=== PATIENT | female | born 1945 | race African-American/Black ===

== ENCOUNTER 2017-03-09 12:37 | Inpatient (IN) ==
[2017-03-09 13:28] LABS: MANUAL DIFF NEEDED? NO
[2017-03-09 13:30] LABS: BASO% 0.9 % (0.0-0.8); EOS# 0.07 X1000 (0.0-0.7); EOS% 1.2 % (0.0-10.0); HEMATOCRIT 40.2 % (37.0-47.0); HEMOGLOBIN 13.7 g/dL (12.0-16.0); LYMPH# 1.26 X1000 (1.2-3.4); LYMPH% 21.9 % (20.5-51.1); MCH 30.1 PG (27-31); MCHC 34.1 g/dL (33-37); MCV 88.4 FL (81-99); MONO# 0.53 X1000 (0.11-0.59); MONO% 9.2 % (1.7-9.3); MPV 11.2 FL (7.4-10.4); NEUT% 66.8 % (42.2-75.2); PLT 230 X1000 (130-400); RBC 4.55 XMIL (4.2-5.4)
[2017-03-09 13:39] LABS: INR 1.07; PROTIME 11.3 Seconds (9.2-11.7); PTT 30.6 Seconds (22.0-36.0)
[2017-03-09 13:46] LABS: ALBUMIN 4.1 g/dL (3.5-5.0); CALCIUM 9.3 mg/dL (8.8-10.2); MAGNESIUM 2.1 mg/dL (1.5-2.7); POTASSIUM 3.7 mmol/L (3.5-5.1); TOTAL BILIRUBIN 0.56 mg/dL (0.20-1.00); TOTAL PROTEIN 7.7 g/dL (6.3-8.3)
--- NOTE | 2017-03-09 16:52 | EKG Report ---
Test Performed on : 03/09/2017 1:18:25 PM Test Reason : numbness Blood Pressure : / mmHG Vent. Rate : 068 BPM Atrial Rate : 068 BPM P-R Int : 166 ms QRS Dur : 096 ms QT Int : 400 ms P-R-T Axes : 076 033 054 degrees QTc Int : 425 ms Normal sinus rhythm. Left ventricular hypertrophy with repolarization abnormality Abnormal ECG No previous ECGs available Unconfirmed Result
--- NOTE | 2017-03-09 17:39 | ED EKG INTERP ---
This chart was entered by Lennox Azevedo Scribe, acting as scribe for Alexx Carbajal MD. EKG Interpretation - EKG Time of EKG reading by physician:: 13:18 EKG Read and Signed by:: Alexx Carbajal EKG Interpretation (*Must complete 3 of following elements*): Abnormal Rate: 68 Rhythm: NSR [place]: normal QRS: normal AR Interval: normal ST Wave: non-specific ST changes This chart was documented by the indicated scribe, (Lennox Azevedo Scribe) and accurately reflects the services I performed and decisions made by Solomon tejada Vincent J., MD, as attested by the provider's signature.
[2017-03-09] MEDS ORDERED: LABETALOL IV ONE ×2 (17:46→19:10)
--- NOTE | 2017-03-09 18:46 | Diag Imaging Result Doc PS360 ---
HEAD W/O CONTRAST - 03/09/2017 INDICATION: NUMBNESS TECHNIQUE: A CT dose reduction protocol was used. COMPARISON: None FINDINGS: The ventricles and sulci are normal in size and contour. No intracranial mass or hemorrhage. The skull is intact. The sinuses mastoids and middle ears are clear. IMPRESSION: Negative exam. Electronically signed by Justin Potter 03/09/2017 6:43 PM
[2017-03-09] MEDS ORDERED: NITROGLYCERIN TOP ONE (19:10)
--- NOTE | 2017-03-09 20:10 | Diag Imaging Result Doc PS360 ---
ANGIOGRAM/PULMONARY ARTERIES - 03/09/2017 INDICATION: elevated Ddimer; HTN TECHNIQUE: Axial CT images were obtained after administering intravenous contrast. Coronal MIP images were generated. A CT dose reduction protocol was used. COMPARISON: None FINDINGS: There is no pulmonary embolism. There is mild cardiomegaly. There are sternotomy wires. There has been previous left upper lobectomy. There are some tiny granulomas in the right lung. There is scarring at the apices bilaterally. No suspicious infiltrates. Upper abdominal images are normal. No acute bony lesions. IMPRESSION: No acute disease. Electronically signed by Justin Potter 03/09/2017 8:08 PM
[2017-03-09] MEDS: CARDENE 20 MG/NS 20 MG/200 ML PIGGYBACK IV SCH ×2 (21:04→21:25)
[2017-03-09] MEDS ORDERED: ASPIRIN PO ONE (21:29)
[2017-03-09] MEDS ORDERED: ATIVAN IM ONE (21:29)
--- NOTE | 2017-03-09 22:15 | HISTORY AND PHYSICAL ---
REASON FOR ADMISSION: A two-day history of intermittent right-sided numbness and resistant elevated blood pressure. HISTORY OF PRESENT ILLNESS: Ms. Dafne Almanza is a 71-year-old lady with past medical history of hypertension, coronary artery disease status post CABG who follows up with Dr. Romero, his machine operator helper, but has no primary care physician. Comes in today complaining of intermittent numbness which lasts anywhere from 10-30 minutes since yesterday afternoon. She denies any accompanying focal weakness or motor deficits, no speech problems, visual problems, difficulty swallowing, ataxia, urinary incontinence, loss of consciousness, headaches. She came in primarily because these episodes are more frequent and more prolonged. On arrival to the ER her blood pressure was greater than 220 systolic and greater than 115 diastolic. She received a total of 40 mg of labetalol, 1 inch paste of nitroglycerin and her blood pressure is still 210/110 diastolic. REVIEW OF SYSTEMS: Surprisingly enough, other than the numbness, 14 system review was totally negative per the patient. No cardiorespiratory complaints. No GI or complaints. ALLERGIES: No known allergies. MEDICATIONS: Lisinopril 20 mg daily and atenolol 50 mg b.i.d. FAMILY HISTORY: Notable for heart failure and type 2 diabetes in first-degree relatives. SURGICAL HISTORY: CABG. SOCIAL HISTORY: She lives with her son, does not smoke, drink or use drugs. LABORATORY WORK/IMAGING: EKG showed normal sinus rhythm with occasional PVCs. Left axis deviation. There are Q-waves in the inferior leads and LVH. CT head reveals no acute intracranial process. Other lab work shows negative troponin. White count 5000, hemoglobin and hematocrit of 30 and 40, platelets 230,000 with normal differential. BUN 17, creatinine 1.2, glucose 137, proBNP 941. D-dimer was 1. CTA of the chest was negative for any PE or any gross aortic abnormality. PT PTT is normal. PHYSICAL EXAMINATION: GENERAL: Middle-aged woman who is not in acute distress. She is alert and oriented x3. Normal mood and affect. VITAL SIGNS: Blood pressure is 218/114, heart rate 65, respirations were initially 25 because she was anxious, and now it is 18. Temperature 99.2 degrees, and 95% on room air. HEENT: Head is normocephalic. Eyes STEFANO, EOMI. She has bilateral cataracts. She is anicteric and not pale. Cranial 2-12 are grossly intact. NEUROLOGICAL: Reveals no sensory or motor deficits. Power is 5/5 in both extremities. EARS, NOSE AND THROAT/OROPHARYNX: Shows no oropharyngeal exudates or erythema. No central cyanosis. NECK: Supple. No JVD or carotid bruit. No thyromegaly. CHEST: Clear to auscultation. Good air entry in both lung [place]. First and second heart sounds are heard. There was suggestion systolic murmur was heard. Rhythm is regular. ABDOMEN: Protuberant, soft, nontender. No masses or organomegaly. Bowel sounds hypoactive. RECTAL: Deferred at this time. EXTREMITIES: No edema, clubbing or peripheral cyanosis. Pulses in all distal extremities are intact with good volume and are symmetrical. NEUROLOGIC: See above. SKIN: Intact. No breakdown lesion or erythema. MUSCULOSKELETAL: Grossly normal. ASSESSMENT: 1. Probable transient ischemic attack/stroke-like syndrome. We will do a customary transient ischemic attack workup especially since the patient has documented coronary artery disease. MRI, carotid Doppler study, and echo needs to be provided. We will cautiously bring down blood pressure, no longer no lower than 180, at least for the 1st 12 hours I would like to keep blood pressure between 170-180 systolic. We will continue patient's home medications, add on a calcium channel ana and a diuretic to the current medications she is on. The son denies the mother having any significant problems or snoring which may make sleep apnea less likely. We will consult Dr. Romero who is the patient's only regular physician to swing by us here and see if there is anything on her medication list she has forgotten. The patient says she has been very compliant with her medications. The patient will be started on aspirin and statins in the interim. DVT prophylaxis with Lovenox. 2. Hypertensive urgency. We will continue the aforementioned blood pressure medications i.e. the calcium channel ana and diuretic, AKIKO and atenolol. P.r.n. hydralazine will be given for systolic blood pressures greater than 200. 3. Coronary artery disease. Continue statin, aspirin, beta blockers. We will also screen patient for other risk factors, check lipid panel and an A1c due the fact she has had a family history of diabetes and she has mildly elevated blood sugars. cc: Toya Burgess MD
[2017-03-09 22:19] LABS: HDL 49 mg/dL (45-65); LDL 152 mg/dL; TRIGLYCERIDES 72 mg/dL (35-135); VLDL 14 mg/dL
[2017-03-09 22:20] LABS: HEMOGLOBIN A1C 5.8 % (4.8-6.0)
[2017-03-09] MEDS ORDERED: ZOFRAN IV PRN (22:44)
[2017-03-09] MEDS ORDERED: ALDACTAZIDE 25/25 PO ONE (22:44)
[2017-03-09] MEDS ORDERED: TYLENOL PO PRN (22:44)
[2017-03-09] MEDS ORDERED: NORVASC PO ONE (22:44)
[2017-03-09] MEDS ORDERED: APRESOLINE IV PRN (22:44)
[2017-03-09] MEDS ORDERED: ATIVAN IM PRN (22:44)
[2017-03-09] MEDS: TENORMIN PO SCH (23:36)
[2017-03-09] MEDS: NITROGLYCERIN TOP SCH (23:36)
[2017-03-09] MEDS: PRINIVIL PO SCH (23:36)
[2017-03-09] MEDS: LOVENOX SUBQ SCH (23:36)
[2017-03-10] MEDS: NITROGLYCERIN TOP SCH ×4 (04:50→22:21)
[2017-03-10 05:17] LABS: MANUAL DIFF NEEDED? NO
[2017-03-10 05:20] LABS: BASO% 0.4 % (0.0-0.8); EOS# 0.02 X1000 (0.0-0.7); EOS% 0.2 % (0.0-10.0); HEMATOCRIT 40.5 % (37.0-47.0); HEMOGLOBIN 13.9 g/dL (12.0-16.0); LYMPH# 1.74 X1000 (1.2-3.4); LYMPH% 19.5 % (20.5-51.1); MCH 30.3 PG (27-31); MCHC 34.3 g/dL (33-37); MCV 88.4 FL (81-99); MONO# 1.04 X1000 (0.11-0.59); MONO% 11.6 % (1.7-9.3); NEUT% 68.3 % (42.2-75.2); PLT 239 X1000 (130-400); RBC 4.58 XMIL (4.2-5.4)
[2017-03-10 05:38] LABS: CALCIUM 9.6 mg/dL (8.8-10.2); POTASSIUM 3.6 mmol/L (3.5-5.1)
[2017-03-10] MEDS ORDERED: NORVASC PO SCH (09:00)
[2017-03-10] MEDS: ALDACTAZIDE 25/25 PO SCH (09:19)
[2017-03-10] MEDS: TENORMIN PO SCH ×2 (09:19→20:28)
[2017-03-10] MEDS: ASPIRIN PO SCH (09:19)
[2017-03-10] MEDS: PRINIVIL PO SCH ×2 (09:19→20:28)
[2017-03-10] MEDS ORDERED: APRESOLINE PO ONE (10:15)
[2017-03-10] MEDS: LABETALOL IV PRN ×4 (11:24→20:28)
--- NOTE | 2017-03-10 11:24 | PROGRESS NOTE ---
DATE: 03/10/2017 SUBJECTIVE: Patient has no focal complaints. She is having some issues with numbness in her right hand. OBJECTIVE: Vital Signs: Blood pressure 222/92, heart rate 77, respiratory rate 20, temperature 97.8 degrees, 99% on room air. Cardiovascular: Regular rate and rhythm. Pulmonary: Bilateral breath sounds clear to auscultation. GI: Soft, nontender, nondistended. Bowel sounds were positive. Laboratory Data: White count is normal. Hemoglobin and hematocrit 13 and 40. Platelets 239,000. BMP is normal. Creatinine 1.2. PROBLEM LIST: 1. Transient ischemic attacks versus cerebrovascular accident. She is awaiting MRI today and carotid. Allowing some degree of permissive hypertension but her systolic is 220 so I think we will work on trying to get her blood pressure down a little bit. 2. Hypertensive emergency. She is on multiple medications. Amlodipine 10, atenolol 50 twice a day, lisinopril 20 twice a day, spironolactone/hydrochlorothiazide 25/25 daily, nitroglycerin paste at this point. We will add low-dose hydralazine and follow clinically. 3. Disposition pending her clinical course. Cardiology has been consulted. Awaiting recommendations as far as blood pressure control. cc: Jignesh Jones MD
[2017-03-10] MEDS ORDERED: SODIUM BICARBONATE 8.4% 150 MEQ in D5W 1,000 ML IV SCH (12:00)
--- NOTE | 2017-03-10 12:41 | Diag Imaging Result Doc PS360 ---
EXAM: MRI BRAIN W/O CONTRAST INDICATION: TIA in CAD pt COMPARISON: None. FINDINGS: There is no evidence of acute infarct. The deep white matter signal is unremarkable. There is no discrete intracranial mass, mass effect, or intracranial hemorrhage. The surrounding soft tissues and bony structures are essentially unremarkable. IMPRESSION: No evidence of acute intracranial pathology and essentially unremarkable, otherwise. Electronically signed by Angelito Yadav 03/10/2017 12:39 PM
--- NOTE | 2017-03-10 12:50 | Diag Imaging Result Doc PS360 ---
EXAM: MRA NECK W/CONT INDICATION: TIA, HTN, evaluate carotid artery disease TECHNIQUE: COMPARISON: None. FINDINGS: There is very mild luminal irregularity at the distal left common carotid artery and left carotid bifurcation likely related to mild atherosclerotic disease. This is causing mild focal stenosis at the origin of the left ICA. There is probably less than 10% luminal narrowing. The remainder of the left ICA and left CCA as well as the entire right carotid system are widely patent with no evidence of flow significant stenosis, vascular malformation, or aneurysm. There is mild signal dropout involving the distal right vertebral artery just proximal to the basilar artery. 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 It does remain patent as seen on the source images. IMPRESSION: Mild atherosclerotic irregularity involving the distal left CCA and left carotid bifurcation causing only mild narrowing of the origin of the left ICA. Electronically signed by Angelito Yadav 03/10/2017 12:48 PM
[2017-03-10] MEDS ORDERED: APRESOLINE PO SCH ×3 (13:00→17:00)
--- NOTE | 2017-03-10 13:04 | EKG Report ---
Test Performed on : 03/10/2017 12:33:22 PM Test Reason : TIA, HTN Blood Pressure : / mmHG Vent. Rate : 084 BPM Atrial Rate : 084 BPM P-R Int : 172 ms QRS Dur : 100 ms QT Int : 396 ms P-R-T Axes : 077 035 -34 degrees QTc Int : 467 ms Normal sinus rhythm. Possible Left atrial enlargement Left ventricular hypertrophy Cannot rule out Septal infarct (cited on or before 10-MAR-2017) T wave abnormality, consider inferolateral ischemia Abnormal ECG When compared with ECG of 10-MAR-2017 12:32, (Unconfirmed) No significant change was found Confirmed by Larisa Brady MD ([id number]) on 03/11/2017 1:01:39 PM
[2017-03-10] MEDS: APRESOLINE PO SCH ×2 (16:45→20:29)
[2017-03-10] MEDS: LIPITOR PO SCH (20:29)
[2017-03-10] MEDS: LOVENOX SUBQ SCH (22:21)
[2017-03-11] MEDS: NITROGLYCERIN TOP SCH ×5 (04:48→23:32)
[2017-03-11 06:07] LABS: CALCIUM 9.5 mg/dL (8.8-10.2); POTASSIUM 3.5 mmol/L (3.5-5.1)
--- NOTE | 2017-03-11 06:13 | EKG Report ---
Test Performed on : 03/11/2017 05:43:50 AM Test Reason : uncontrolled HTN/s/pCABG Blood Pressure : / mmHG Vent. Rate : 083 BPM Atrial Rate : 083 BPM P-R Int : 160 ms QRS Dur : 098 ms QT Int : 388 ms P-R-T Axes : 083 029 044 degrees QTc Int : 455 ms Normal sinus rhythm. Voltage criteria for left ventricular hypertrophy T wave abnormality, consider inferolateral ischemia Abnormal ECG When compared with ECG of 10-MAR-2017 12:33, (Unconfirmed) Minimal criteria for Septal infarct are no longer present Confirmed by Larisa Brady MD ([id number]) on 03/11/2017 1:02:58 PM
[2017-03-11] MEDS ORDERED: LEXISCAN ONE (09:11)
--- NOTE | 2017-03-11 09:12 | CONSULTATION ---
DATE OF CONSULTATION: 03/10/2017 REQUESTING PHYSICIAN: Hospitalist Service. REASON FOR CONSULTATION: Possible stroke, severe hypertension, and abnormal EKG. HISTORY OF PRESENT ILLNESS: Ms. Almanza is a 71-year-old black female who presented to the Emergency Room on 03/09/2017 at about 1:00 p.m. or so with complaints of having a funny feeling that she described as a twinge in the palm of the right hand and also in the right foot. This appeared to come and go and suddenly became more intense. It was not painful. She suspected that this could be a stroke and decided to seek medical attention. In the Emergency Room Department they did several blood pressure determinations and her blood pressure got to be as high as 271/124. Her blood pressure eventually came back down to 200/104. The patient had several EKGs that showed diffuse repolarization abnormality with sinus rhythm. No chest pain was reported at any point in time. Today at 2:00 p.m. in the afternoon she was feeling back to her normal self. She has had already an MRI of the neck and of the brain which shows no evidence of any major stroke nor evidence of any major obstruction of the circulation to the brain. PAST MEDICAL HISTORY: Her past history is positive for hypertension for many years. She has a history of severe coronary artery disease. She underwent a triple coronary bypass procedure back in 2005. She received a mammary artery graft to the LAD, vein graft to D1, and vein graft to the right coronary artery. The patient has had hyperlipidemia. PAST SURGICAL HISTORY: Besides the coronary artery bypass, she has had a left upper lobectomy for tuberculosis many years ago in the 70s. SOCIAL HISTORY: She lives with her son. She is retired. She is a not a smoker. FAMILY HISTORY: Negative. ALLERGIES: Negative. She has no allergies. MEDICATIONS: Home medications at the time of this visit includes: Lisinopril 20 mg twice a day and atenolol 50 mg twice a day. REVIEW OF SYSTEMS: She has not had any major change in her overall status but she is aware of having high blood pressure. No recent cardiovascular change or pulmonary change. No gastrointestinal symptoms of any significance. No musculoskeletal symptoms. No skin disorder. No hearing or visual problems. No recent neurological symptoms until the ones that brought her to the Emergency Room. No psychiatric illness. No diabetes or hypothyroidism. She says that she does not have any primary physician. PHYSICAL EXAMINATION: VITAL SIGNS: Right now her blood pressure is 200/104, temperature 98.3, pulse 70, and respirations 12. GENERAL: She is awake, alert, oriented, and in no distress. HEENT: Unremarkable. CHEST: Clear to auscultation and percussion. CARDIOVASCULAR: Heart sounds are regular and rhythmic. No gallop or murmur. ABDOMEN: Soft and nontender. No masses. No hepatomegaly. EXTREMITIES: The extremities show +1 edema. NEUROLOGICAL: She moves all extremities and follows commands. LABORATORY DATA: Blood work shows a sodium of 140, potassium 3.6, BUN 16, and creatinine 1.2. ProBNP is 941. Troponin levels have been checked twice and they are negative. Her white count is normal. Hemoglobin is normal. Pulmonary arteriogram was done at the time of presentation that showed no acute disease. IMPRESSION: 1. Patient presenting with severe hypertension due to hypertensive urgency. 2. Symptoms consistent with a transient ischemic attack involving the left side of the brain, parietal area. Because there is no motor deficit it is more a paresthesia. This has subsided. 3. History of coronary artery bypass surgery status post bypass in 2005. 4. Hyperlipidemia. 5. Remote history of tuberculosis status post lobectomy. RECOMMENDATIONS: At this point in time we will review the MRI of the neck and brain. We will order a CT scan of the renal arteries to exclude renal hypertension. I will request a Lexiscan myocardial perfusion study. We will review the echocardiogram. Further advice will be forthcoming. cc: Brandon Segundo MD
[2017-03-11] MEDS: ASPIRIN PO SCH (09:15)
[2017-03-11] MEDS: TENORMIN PO SCH ×2 (09:15→20:27)
[2017-03-11] MEDS: PRINIVIL PO SCH ×2 (09:15→20:27)
[2017-03-11] MEDS: APRESOLINE PO SCH ×3 (09:15→20:27)
[2017-03-11] MEDS: ALDACTAZIDE 25/25 PO SCH (09:15)
[2017-03-11] MEDS: NORVASC PO SCH ×2 (09:15→20:27)
[2017-03-11] MEDS: LABETALOL IV PRN ×3 (09:15→18:40)
--- NOTE | 2017-03-11 09:58 | PROGRESS NOTE ---
DATE: 03/11/2017 CHIEF COMPLAINT: Uncontrolled hypertension and paresthesia of the right hand and right leg. SUBJECTIVE: Ms. Almanza says that she has not experienced any more paresthesias. Blood pressure appears to be better controlled although it is still running somewhat high. She denies having any chest pain. OBJECTIVE: Vital signs: Blood pressure is 187/70, temperature 98.4, pulse 85, and respirations 20. General: She is awake, alert, oriented, and follows commands. HEENT: Unremarkable. Chest: Clear to auscultation and percussion. Cardiovascular: Heart sounds are regular and rhythmic. She does have a systolic murmur, 2/6 over the aortic area. Abdomen: Her abdomen is soft and nontender. No masses. No hepatomegaly. Extremities: The extremities show good pulses. No peripheral edema. Neurological: She follows commands and moves all extremities. No obvious deficits. LABORATORY DATA: Blood work reveals a sodium of 140, potassium 3.5, BUN 17, and creatinine 1.4. IMPRESSION: 1. Patient who presented with uncontrolled hypertension. 2. Patient has a history of severe coronary artery disease with previous bypass surgery. 3. Suspect transient ischemia attack versus stroke involving the left parietal area of the brain causing paresthesias. 4. Mild renal dysfunction. Evaluate for renal artery stenosis. RECOMMENDATIONS: Today we are going to do a Lexiscan myocardial perfusion study. We will also try to obtain a CT angiogram of the renal arteries. Further advice will depend on the results of these studies. In the meantime we might consider adjusting her medications further to try to optimize her systemic blood pressures. cc: Brandon Segundo MD
[2017-03-11] MEDS ORDERED: NS 500 ML ONE (10:44)
--- NOTE | 2017-03-11 12:33 | Diag Imaging Result Doc PS360 ---
EXAM: ANGIOGRAM/RENAL ARTERIES HISTORY: severe HTN, evaluate for renal artery stenosis TECHNIQUE: MIP images obtained COMPARISON: None. FINDINGS: There are scattered hypodense hepatic and renal lesions believed to be cysts. The largest arises from the upper pole of the right kidney measuring 5.4 cm. Normal spleen and adrenal glands. Prominent pancreatic duct. No pancreatic mass identified. The gallbladder is partly contracted. No calcified stones. No bowel obstruction. Normal takeoff of the celiac artery and the superior mesenteric artery. No stenosis to either of these arteries. There is atherosclerotic plaque at the takeoff of each renal artery. Stenosis of between 50-70%. Calcified plaque is more prominent on the right. No aneurysmal dilatation to the abdominal aorta. Normal inferior mesenteric artery. Prominent atherosclerosis in the distal abdominal aorta and iliac arteries. 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 4.Prominent atherosclerosis in the distal abdominal aorta and iliac arteries. No aneurysmal dilatation. Electronically signed by Derek Copeland 03/11/2017 12:31 PM
--- NOTE | 2017-03-11 12:59 | ECHO REPORT ---
ORDER DATE: 03/10/2017 MEASUREMENTS: Left ventricular end-diastolic diameter 5.8. End systolic diameter 2.5. Posterior wall thickness 1.5. Septal thickness 1.5. Left atrium 4.6. Aortic root 2.7 SUMMARY: 1. Fair quality study. 2. Mild aortic valve sclerosis demonstrated with adequate aortic valve opening evident. There is trace aortic regurgitation. Mild mitral calcification is demonstrated with mild thickening of mitral valve leaflets. Mitral valve opening is adequate. There is very mild mitral regurgitation. Tricuspid and pulmonic valves are without structural abnormality with mild tricuspid regurgitation and mild pulmonic insufficiency. The estimated systolic PA pressure by Doppler is 30-35 mmHg. The aortic root is normal size. 3. Borderline left ventricular enlargement with moderate concentric left hypertrophy is demonstrated. Estimated left ejection fraction appears to be at least 60%. No regional wall motion abnormalities evident. Doppler suggests grade 1 left ventricular diastolic dysfunction. Left atrium is mildly enlarged. Right atrium and right ventricle are normal size with normal right ventricular systolic function. 4. No pericardial effusion. 5. Appearance of inferior vena cava suggests normal central venous pressure. CONCLUSION: 1. Aortic valve sclerosis without stenosis with trace aortic insufficiency. 2. Very mild mitral regurgitation. 3. Mild tricuspid regurgitation with estimated systolic PA pressure 30-35 mmHg. 4. Borderline left ventricular enlargement with moderate concentric left hypertrophy and estimated left ejection fraction greater than 60%. 5. Grade 1 left ventricular diastolic dysfunction. 6. Mild left atrial enlargement. cc: MD Toya Figueroa MD
--- NOTE | 2017-03-11 13:37 | Diag Imaging Result Document ---
PROCEDURE NAME: MYOCARDIAL PERF SCAN, STR/REST - 03/11/2017 STUDY: Rest/stress Lexiscan myocardial perfusion imaging study. REQUESTING DOCTOR: Dr. Segundo INDICATION: A 71-year-old female patient presenting with uncontrolled hypertension, possible stroke, post bypass surgery. This is a followup on her coronary heart disease. DESCRIPTION: The patient came into the nuclear lab and received a rest injection of technetium-99 sestamibi 12.6 mCi. Multiple tomographic views of the cardiac structures were obtained at rest. Subsequently, the patient underwent infusion of Lexiscan 0.4 mg per protocol. At peak infusion, injected with technetium-99 sestamibi 35.4 mCi. Multiple tomographic views of the cardiac structures were obtained following the completion of the exercise protocol. SUMMARY OF THE ELECTROCARDIOGRAPHIC PORTION OF THE STUDY: Resting ECG shows sinus rhythm, rate 87 beats per minute. Resting blood pressure 215/111. Resting ECG shows left ventricular hypertrophy with diffuse repolarization abnormality. During the protocol, the heart rate increased to 120 beats per minute. The blood pressure dropped to 178/89. The patient reported no chest pain, shortness of breath, or palpitations. The ECG showed no significant changes. Following the completion of infusion, the heart rate and blood pressure returned back to their baseline. IMPRESSION: In summary, the electrocardiographic response of infusion of Lexiscan is inconclusive due to the presence of extensive repolarization abnormalities. SUMMARY OF THE MYOCARDIAL PERFUSION PORTION OF THE STUDY: Poststress tomographic views of the left ventricle showed a moderate to severe mid anterior to apical anterior defect. The rest images showed reversibility of this defect. The polar plots revealed the same. There is evidence of inducible ischemia of significant degree involving the mid to apical anterior wall of the left ventricle. This corresponds to the territory of the LAD. No scar is noted. Gated SPECT shows normal left ventricular systolic function, ejection fraction of 60% with normal ventricular volumes, no wall motion abnormality. The lung/heart ratio is normal. TID is abnormally elevated at 1.42. IMPRESSION: In summary, this study shows: 1. Inconclusive electrocardiographic response to infusion of Lexiscan. 2. Abnormal poststress myocardiac perfusion scan. There is scintigraphic evidence of inducible ischemia of significant degree involving the mid to apical anterior wall of the left ventricle suggesting compromise of the LAD. No scar is noted. 3. Preserved left ventricular systolic function. Ejection fraction estimated at 60% with normal ventricular volumes, no wall motion abnormality. This study represents high risk for ischemic events. cc: Brandon Segundo MD
[2017-03-11] MEDS: SODIUM BICARBONATE 8.4% 150 MEQ in D5W 1,000 ML IV SCH (17:29)
--- NOTE | 2017-03-11 19:37 | Carotid Study ---
DATE: 03/09/2017 PROCEDURE: Carotid duplex imaging. REFERRING PHYSICIAN: Dr. Burgess/Dr. Jones INTERPRETING PHYSICIAN: BING: Marcello INDICATIONS: TIA with right-sided weakness. OBSERVED DATA RIGHT LEFT Brachial Blood Pressure Carotid Pulse Bruits: Carotid/Sub DIAGRAM OF ULTRASOUND IMAGING R L RIGHT INT EXT INT EXT LEFT Alex (cm/s) Alex (cm/s) Subclavian 85/8 Subclavian 143/0 CCA Proximal 63/9 CCA Proximal 86/12 CCA Distal 58/9 CCA Distal 65/9 Bulb 49/7 Bulb 72/13 ICA Proximal 30/7 ICA Proximal 65/9 ICA Mid 51/14 ICA Mid 55/13 ICA Distal 50/14 ICA Distal 46/13 ECA 66/0 ECA 76/3 Vertebral 39/10, antegrade Vertebral 60/14, antegrade ICA/CCA Ratio 0.87 ICA/CCA Ratio 0.76 % Stenosis 0-39% % Stenosis 0-39% FINDINGS: On the right side, there is some intimal thickening of the common carotid artery but overall no significant flow-limiting lesion is noted. On the left, there is a very heterogeneous calcific appearing plaque in the carotid bulb extending into the proximal internal carotid artery. On the downstream side of this, there does appear to be an area that is not calcified. There is possibility of thrombus on top of an ulcerative plaque. This does appear to be a quite stenotic lesion, although does not seem to cause turbulence of flow. There is some swirling of blood distally but no elevation of velocity noted. PHYSICIAN INTERPRETATION: Overall normal exam on the right. On the left, there does appear to be possibility of a soft appearing thrombus on top of a more calcific plaque that could potentially explain the patient's right-sided symptoms. Would recommend correlation clinically. cc: MD Toya Ocampo MD
[2017-03-11] MEDS: LIPITOR PO SCH (20:27)
[2017-03-11] MEDS: LOVENOX SUBQ SCH ×2 (20:28→23:32)
[2017-03-12] MEDS: NITROGLYCERIN TOP SCH ×2 (03:21→08:04)
[2017-03-12] MEDS: NORVASC PO SCH ×2 (08:04→21:02)
[2017-03-12] MEDS: TENORMIN PO SCH ×2 (08:04→21:02)
[2017-03-12] MEDS: ALDACTAZIDE 25/25 PO SCH (08:04)
[2017-03-12] MEDS: APRESOLINE PO SCH ×3 (08:04→21:02)
[2017-03-12] MEDS: ASPIRIN PO SCH (08:04)
[2017-03-12] MEDS: PRINIVIL PO SCH ×2 (08:04→21:02)
[2017-03-12 12:52] LABS: CALCIUM 9.2 mg/dL (8.8-10.2); POTASSIUM 3.4 mmol/L (3.5-5.1)
--- NOTE | 2017-03-12 14:02 | PROGRESS NOTE ---
DATE: 03/12/2017 SUBJECTIVE: Patient has no focal complaints. OBJECTIVE: Vital Signs: Blood pressure has improved drastically. Blood pressure 137/66, heart rate 78, respiratory rate 14, and temperature 98.7 degrees. Cardiovascular: Regular rate and rhythm. Pulmonary: Bilateral breath sounds. Clear to auscultation. Gastrointestinal: Soft, nontender, nondistended. Bowel sounds were positive. Extremities: No clubbing or cyanosis. LABORATORY DATA: Potassium 3.4, creatinine 1.4. PROBLEM LIST: 1. Hypertensive urgency related to renal artery stenosis. Continue blood pressure control. I am going to take her off her hydrochlorothiazide just because of the renal insufficiency issues in anticipation of need of IV contrast. I am going to switch her nitroglycerin paste to Imdur. She is on lisinopril, hydralazine (hydralazine had been increased), atenolol, and Norvasc. 2. Acute kidney injury. She seems to be stable. She is on bicarbonate infusion and Mucomyst. Anticipate catheterization on Tuesday and then possible renal artery adjustment. She may need stenting. Discussed with the local surgical service here, but will likely need that procedure done by [facility] in [place]. DISPOSITION: We will continue to follow until Tuesday's testing and then likely transfer. cc: Jignesh Jones MD
[2017-03-12] MEDS: MUCOMYST 20% PO SCH ×2 (15:50→21:02)
[2017-03-12] MEDS: SODIUM BICARBONATE 8.4% 150 MEQ in D5W 1,000 ML IV SCH (15:54)
[2017-03-12] MEDS: LIPITOR PO SCH (21:02)
[2017-03-12] MEDS: LOVENOX SUBQ SCH (21:02)
[2017-03-13 05:11] LABS: HEMATOCRIT 41.1 % (37.0-47.0); HEMOGLOBIN 13.6 g/dL (12.0-16.0); MCH 30.4 PG (27-31); MCHC 33.1 g/dL (33-37); MCV 91.7 FL (81-99); MPV 10.9 FL (7.4-10.4); RBC 4.48 XMIL (4.2-5.4)
[2017-03-13 05:46] LABS: CALCIUM 8.9 mg/dL (8.8-10.2); POTASSIUM 3.2 mmol/L (3.5-5.1)
[2017-03-13] MEDS: PRINIVIL PO SCH ×2 (08:29→20:25)
[2017-03-13] MEDS: APRESOLINE PO SCH ×3 (08:29→20:24)
[2017-03-13] MEDS: ALDACTONE PO SCH (08:29)
[2017-03-13] MEDS: ASPIRIN PO SCH (08:29)
[2017-03-13] MEDS: NORVASC PO SCH ×2 (08:29→20:25)
[2017-03-13] MEDS: TENORMIN PO SCH ×2 (08:29→20:24)
[2017-03-13] MEDS: MUCOMYST 20% PO SCH ×2 (08:31→20:24)
[2017-03-13] MEDS ORDERED: IMDUR PO SCH (09:00)
[2017-03-13] MEDS ORDERED: KLOR-CON PO ONE (13:16)
[2017-03-13] MEDS ORDERED: IMDUR PO ONE (13:28)
[2017-03-13] MEDS: SODIUM BICARBONATE 8.4% 150 MEQ in D5W 1,000 ML IV SCH (14:35)
--- NOTE | 2017-03-13 15:41 | PROGRESS NOTE ---
DATE: 03/13/2017 SUBJECTIVE: Patient has no focal complaints. OBJECTIVE: Vital signs: Blood pressure 168/72, heart rate 71, respiratory 16, temperature 97.9 degrees, 95% on room air. Cardiovascular: Regular rate and rhythm. Pulmonary: Bilateral breath sounds. Clear to auscultation. GI: Soft, nontender, nondistended. Bowel sounds are positive. Extremities: No clubbing or cyanosis. Lymphatics: No peripheral edema. Neurological: Nonfocal. LABORATORY DATA: White count 7, hemoglobin and hematocrit 13 and 41, platelets 244,000. Potassium 3.2, creatinine 1.5. Free T4 was only 1.12 which is normal. PROBLEM LIST: 1. Hypertensive emergency. She seems to be doing better. We feel this is secondary to renal artery stenosis. Plan is for renal artery stent after her catheterization. Most likely this will transpire at [place]. If she needs PCI she will just get both procedures done there. If she does not get transferred I will consult Dr. Jeter. Apparently he does do renal artery stents at this facility. Blood pressure is still not completely controlled. I am going to increase her Imdur. She is on lisinopril, she is on hydralazine, atenolol and Norvasc. 2. Acute kidney injury. Slight increase in her creatinine. I am going to bump up her bicarb a little bit and continue the Mucomyst. Plan is for cardiac catheterization tomorrow. 3. Abnormal myocardial perfusion imaging. Again plan is for cardiac catheterization tomorrow, she may end up needing PCI depending on diagnostic catheterization results. DISPOSITION: Pending her cardiac catheterization tomorrow. cc: Jignesh Jones MD
[2017-03-13] MEDS: LOVENOX SUBQ SCH (20:24)
[2017-03-13] MEDS: LIPITOR PO SCH (20:25)
[2017-03-14 05:02] LABS: HEMATOCRIT 39.8 % (37.0-47.0); HEMOGLOBIN 13.1 g/dL (12.0-16.0); MCH 30.6 PG (27-31); MCHC 32.9 g/dL (33-37); MPV 10.8 FL (7.4-10.4); RBC 4.28 XMIL (4.2-5.4)
[2017-03-14 05:07] LABS: INR 1.06; PROTIME 11.2 Seconds (9.2-11.7)
[2017-03-14 05:21] LABS: CALCIUM 9.2 mg/dL (8.8-10.2); POTASSIUM 3.6 mmol/L (3.5-5.1)
--- NOTE | 2017-03-14 06:01 | EKG Report ---
Test Performed on : 03/14/2017 05:25:19 AM Test Reason : chest pain, cad Blood Pressure : / mmHG Vent. Rate : 072 BPM Atrial Rate : 072 BPM P-R Int : 162 ms QRS Dur : 094 ms QT Int : 396 ms P-R-T Axes : 075 024 261 degrees QTc Int : 433 ms Normal sinus rhythm. Moderate voltage criteria for LVH, may be normal variant T wave abnormality, consider lateral ischemia Abnormal ECG When compared with ECG of 13-MAR-2017 06:11, (Unconfirmed) Nonspecific T wave abnormality has replaced inverted T waves in Inferior leads Nonspecific T wave abnormality has replaced inverted T waves in Anterior leads Confirmed by Larisa Brady MD ([id number]) on 03/14/2017 10:18:13 AM
--- NOTE | 2017-03-14 06:23 | EKG Report ---
Test Performed on : 03/12/2017 06:20:17 AM Test Reason : chest pain, cad Blood Pressure : / mmHG Vent. Rate : 080 BPM Atrial Rate : 080 BPM P-R Int : 166 ms QRS Dur : 098 ms QT Int : 370 ms P-R-T Axes : 073 036 -79 degrees QTc Int : 426 ms Normal sinus rhythm. Voltage criteria for left ventricular hypertrophy T wave abnormality, consider inferior ischemia T wave abnormality, consider anterolateral ischemia Abnormal ECG When compared with ECG of 11-MAR-2017 05:43, T wave inversion now evident in Anterior leads Confirmed by Larisa Brady MD ([id number]) on 03/14/2017 10:17:12 AM
--- NOTE | 2017-03-14 06:26 | EKG Report ---
Test Performed on : 03/13/2017 06:11:18 AM Test Reason : chest pain, cad Blood Pressure : / mmHG Vent. Rate : 060 BPM Atrial Rate : 060 BPM P-R Int : 168 ms QRS Dur : 100 ms QT Int : 426 ms P-R-T Axes : 053 032 -11 degrees QTc Int : 426 ms Normal sinus rhythm. Voltage criteria for left ventricular hypertrophy T wave abnormality, consider inferior ischemia T wave abnormality, consider anterolateral ischemia Abnormal ECG When compared with ECG of 12-MAR-2017 06:20, (Unconfirmed) No significant change was found Confirmed by Larisa Brady MD ([id number]) on 03/14/2017 10:17:41 AM
[2017-03-14] MEDS: SODIUM BICARBONATE 8.4% 150 MEQ in D5W 1,000 ML IV SCH (07:09)
[2017-03-14] MEDS ORDERED: NITROGLYCERIN ONE (07:28)
[2017-03-14] MEDS ORDERED: HEPARIN 1000 UNITS/NS 2,000 UNIT/1,000 ML IV.SOLN ONE (07:29)
[2017-03-14 08:18] VITALS: BP 160/63
--- NOTE | 2017-03-14 08:26 | PROGRESS NOTE ---
DATE: 03/14/2017 CHIEF COMPLAINT: Numbness of the right hand and severe hypertension. SUBJECTIVE: Ms. Almanza had an uneventful weekend. The patient did not experience any chest pain. Occasional numbness of the right hand. OBJECTIVE: Blood pressure is 153/69, temperature 97.6 ,pulse is about 90, respirations 20. She is awake, alert and oriented, in no distress. HEENT is unremarkable. Chest: Clear to auscultation and percussion. Heart sounds are regular and rhythmic. No gallop or murmur. Her abdomen is nontender, soft. No masses, no hepatomegaly. Extremities showed slightly decreased pulses. No peripheral edema. Neurologic: She moves all 4 extremities, follows commands. DIAGNOSTIC DATA: EKG shows sinus rhythm, left ventricular hypertrophy, nonspecific T wave abnormality consistent with LVH. Blood work today shows sodium 139, potassium 3.6, BUN is 22, creatinine 1.3. White count is 7450, hemoglobin 13.1. IMPRESSION: 1. The patient presented with severe hypertension. She also presented with numbness of the right hand suspicious for a transient ischemic attack/stroke. 2. CT evidence of bilateral renal artery stenosis in the moderate to severe range, 50% to 70%. 3. Severe coronary heart disease with previous coronary bypass surgery an abnormal myocardial perfusion study suggesting occlusion of the LAD system. 4. Mild renal insufficiency. Mild hypokalemia. RECOMMENDATIONS: At this point in time, the patient is advised to pursue left heart catheterization as well as renal arteriography. Benefits, risks and complications were explained. I suggested to her to do it in 2 separate sittings given her renal dysfunction to minimize the amount of dye that might be used. The patient and her 2 children requested that she be transferred to [place] for that specific procedure. We will make arrangements, and they will take care of her from that point onwards. cc: Brandon Segundo MD
[2017-03-14] MEDS ORDERED: IMDUR PO SCH (09:00)
[2017-03-14] MEDS: APRESOLINE PO SCH (09:33)
[2017-03-14] MEDS: TENORMIN PO SCH (09:33)
[2017-03-14] MEDS: PRINIVIL PO SCH (09:33)
[2017-03-14] MEDS: ALDACTONE PO SCH (09:33)
[2017-03-14] MEDS: ASPIRIN PO SCH (09:33)
[2017-03-14] MEDS: NORVASC PO SCH (09:33)
--- NOTE | 2017-03-16 12:58 | DISCHARGE SUMMARY ---
ADMISSION DATE: 03/09/2017 DISCHARGE DATE: 03/14/2017 FINAL DISCHARGE DIAGNOSES: 1. Chest pain in the setting of severe coronary artery disease. 2. Malignant hypertension. 3. Bilateral renal artery stenosis. 4. Acute kidney injury. CONSULTATIONS REQUESTED DURING THIS HOSPITAL STAY: Cardiology consultation with Dr. Segundo. IMAGING PERFORMED DURING THIS HOSPITAL STAY: 1. CT head which was noted to be unremarkable. 2. CT pulmonary arteriogram which revealed no acute disease. 3. 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 4. 2-dimensional echocardiogram which revealed an ejection fraction of 60% with borderline left ventricular enlargement and moderate concentric left hypertrophy. Grade 1 diastolic dysfunction. 5. MRI of the brain which revealed no acute intracranial pathology. 6. MRI neck which revealed mild atherosclerotic irregularity involving the distal left common carotid artery and left carotid bifurcation. 7. Renal arteriogram which revealed stenosis of both renal arteries 50-70%. 8. Myocardial perfusion scan which revealed a moderate to severe midanterior to apical anterior defect. HOSPITAL COURSE: Ms. Almanza is a 71-year-old female with a history of multiple medical problems who presented to the ER with a 2-day history of right-sided numbness and severely elevated blood pressure. Upon arrival to the ER patient was noted to have a systolic blood pressure in the 220 range and diastolic greater than 115. The patient was admitted to the hospitalist service and admitted to the CICU. Cardiology was immediately consulted. The patient was started on all of her home antihypertensives and adjustments were made to the patient's antihypertensive medications. A stroke workup was also performed. The MRI of the brain revealed no acute ischemic event. The MRA of the neck did show some atherosclerotic lesions in the left common carotid artery. The patient also had a renal arteriogram which revealed bilateral renal artery stenosis. The patient also had a myocardial perfusion scan done that was noted to be abnormal. In light of these findings it was recommended by the portable sawmill operator that the patient undergo a left heart catheterization. The patient requested to have this done at [facility]. As a result the patient was transferred to [facility] on 03/14/2017. cc: Faye Orlando MD
--- NOTE | 2017-03-17 12:45 | PROVIDER DOCUMENTATION ---
This chart was entered by Lennox Azevedo Scribe, acting as scribe for Faye Bernardo PA. HPI-Neurological Disorder - General Chief Complaint: Numbness Stated Complaint: BLOOD PRESSURE/HAND AND LEG NUMBNESS Time Seen by Provider: 03/09/17 17:45 Source: patient Allergies/Adverse Reactions: Patient Allergies Allergy/AdvReac Type Severity Reaction Status Date / Time No Known Allergies Allergy Verified 03/09/17 17:26 Home Medications: Home Medication List Medication Instructions Recorded Confirmed Last Taken Type Atenolol 50 mg PO BID 03/09/17 03/09/17 03/09/17 08:00 History LISINOpril [Prinivil] 20 mg PO BID 03/09/17 03/09/17 03/09/17 08:00 History - History of Present Illness-Neuro Nature of Presenting Problem: Patient is a 71 y/o F that presents to the ER with elevated BP medications and left hand and foot numbness that began last pm. Denies any sensory issues, headache, or weakness. No slurred speech or trouble concentrating. patient hasn' t missed a dose of her medications as well. Severity: reports: mild, moderate Onset/Duration: reports: gradual, last night Timing: reports: improving, constant Context: denies: recent infection, impaired speech, facial droop, seizure activity Character of Altered Mental Status: reports: N/A Character of Deficits: reports: altered sensation New weakness or altered sensation location:: reports: RUE, RLE Cognitive Baseline: alert, oriented x3 Gait Baseline: walks without assistance Associated Symptoms: reports: numbness in legs/feet (right foot). denies: headache, fainting, dizziness, neck/back pain, fever/chills, muscle spasms, seizures, slurred speech, vomiting Similar Symptoms Previously?: No Recently seen or treated by another doctor?: No Review of Systems - Adult - REVIEW OF SYSTEMS - ADULT Constitutional: denies: chills, fever Eyes: denies: decreased vision, blurred vision, double vision Ears, Nose, Mouth & Throat: denies: ear discharge, ear pain, sinus problem, throat pain, throat swelling Cardiovascular: denies: chest pain, palpitations, syncope Respiratory: denies: cough, shortness of breath, wheezing Gastrointestinal: denies: abdominal pain, diarrhea, nausea, vomiting Genitourinary: reports: no symptoms reported Musculoskeletal: reports: no symptoms reported Integumentary: reports: no symptoms reported Neurological: reports: numbness (right hand and right foot). denies: dizziness/ vertigo, headache/migraines, loss of balance, seizure, syncope, tremors Psychiatric: reports: no symptoms reported Endocrine: reports: no symptoms reported Hematologic/Lymphatic: reports: no symptoms reported Allergic/Immunologic: reports: no symptoms reported All Other Systems: Reviewed and Negative Past History - Adult - PAST MEDICAL HISTORY-ADULT Review of Records: reports: Old Records Reviewed, Nursing Assessment Review, Medications Reviewed Cardiovascular: reports: HTN - IMMUNIZATION STATUS Childhood Immunizations: See Nurse Assessment Flu Vaccine: See Nurse Assessment - FAMILY HISTORY Family History: reviewed, not pertinent - SOCIAL HISTORY Smoking: non-smoker Living Situation: family Physical Exam- Neurological - Physical Exam-Neuro Initial Vital Signs Reviewed: Yes General Appearance: alert, no apparent distress Eye Exam: bilateral eye: normal inspection, PERRL HENMT: normocephalic/atraumatic, moist mucous membranes, normal ENT inspection Head Injury: no evidence of injury. negative: ecchymosis, lacerations Neck: full range of motion, normal inspection Respiratory: lungs clear, normal breath sounds, no respiratory distress, no accessory muscle use Cardiovascular: normal peripheral pulses, regular rate, rhythm Abdominal Exam: normal bowel sounds, non tender, soft, no organomegaly, no pulsatile mass Extremity: normal range of motion, normal inspection, no pedal edema electrical and instrumentation manager Exam: normal hearing, normal speech, PERRL Motor/Sensory: no motor deficit, no sensory deficit Neurologic: electrical and instrumentation manager II-XII nml as tested, no motor/sensory deficits. negative: facial droop, focal weakness, motor weakness Integumentary: normal color, warm/dry Psych/Mental Status: normal mood/affect, normal thought content, normal thought process, oriented x 3 - Glascow Coma Scale Best Eye Response: (4) open spontaneously Best Verbal Response: (5) oriented Best Motor Response: (6) obeys commands Total Glascow Score: 15 Progress - PLAN OF CARE/RESULTS Progress/Plan/Lab Results: Vital Signs - 8 hr 03/09/17 17:38 03/09/17 18:04 03/09/17 18:45 Pulse Rate 61 66 65 Respiratory Rate 16 24 25 H Blood Pressure 190/120 258/108 271/124 O2 Sat by Pulse Oximetry 97 95 95 Laboratory Results - last 24 hr 03/09/17 03/09/17 03/09/17 13:16 13:16 13:16 WBC 5.76 RBC 4.55 Hgb 13.7 Hct 40.2 MCV 88.4 MCH 30.1 MCHC 34.1 RDW Std Deviation 12.6 Plt Count 230 MPV 11.2 H Immature Gran % (Auto) 0.0 Neut % (Auto) 66.8 Lymph % (Auto) 21.9 Mccormick % (Auto) 9.2 Eos % (Auto) 1.2 Baso % (Auto) 0.9 H Immature Gran # (Auto) 0.00 Neut # (Auto) 3.85 Lymph # (Auto) 1.26 Mccormick # (Auto) 0.53 Eos # (Auto) 0.07 Baso # (Auto) 0.05 PT INR PTT (Actin FS) D-Dimer 1.01 H Sodium 139 Potassium 3.7 Chloride 100 Carbon Dioxide 30 Anion Gap 9 BUN 17 Creatinine 1.2 H Estimated GFR/1.73 m2 54 BUN/Creatinine Ratio 14 Glucose 137 H Calculated Osmolality 281 Calcium 9.3 Magnesium 2.1 Total Bilirubin 0.56 AST 17 ALT 10 Alkaline Phosphatase 81 Creatine Kinase 139 Troponin T [id number] Pept Total Protein 7.7 Albumin 4.1 Globulin 3.6 Albumin/Globulin Ratio 1.1 03/09/17 03/09/17 03/09/17 13:16 13:16 13:16 WBC RBC Hgb Hct MCV MCH MCHC RDW Std Deviation Plt Count MPV Immature Gran % (Auto) Neut % (Auto) Lymph % (Auto) Mccormick % (Auto) Eos % (Auto) Baso % (Auto) Immature Gran # (Auto) Neut # (Auto) Lymph # (Auto) Mccormick # (Auto) Eos # (Auto) Baso # (Auto) PT 11.3 INR 1.07 PTT (Actin FS) 30.6 D-Dimer Sodium Potassium Chloride Carbon Dioxide Anion Gap BUN Creatinine Estimated GFR/1.73 m2 BUN/Creatinine Ratio Glucose Calculated Osmolality Calcium Magnesium Total Bilirubin AST ALT Alkaline Phosphatase Creatine Kinase Troponin T < 0.010 [id number] Pept 941 H Total Protein Albumin Globulin Albumin/Globulin Ratio Orders Category Date Time Status Cardiac Monitoring DIRECTED Care 03/09/17 17:46 Active Saline Loc NOW Care 03/09/17 17:46 Active ANGIOGRAM/PULMONARY ARTERIES [CT] Stat Exams 03/09/17 19:11 Completed HEAD W/O CONTRAST [CT] Stat Exams 03/09/17 17:48 Completed CBC WITH ELECTRONIC DIFF [HEME] Stat Lab 03/09/17 13:16 Completed CK PROFILE [SP CHEM] Stat Lab 03/09/17 13:16 Completed COMPREHENSIVE METABOLIC PANEL [CHEM] Stat Lab 03/09/17 13:16 Completed D-DIMER [CHEM] Stat Lab 03/09/17 13:16 Completed MAGNESIUM [CHEM] Stat Lab 03/09/17 13:16 Completed PRO B-NATRIURETIC PEPTIDE Stat Lab 03/09/17 13:16 Completed PROTIME WITH INR [COAG] Stat Lab 03/09/17 13:16 Completed PTT [COAG] Stat Lab 03/09/17 13:16 Completed TROPONIN T Stat Lab 03/09/17 13:16 Completed Labetalol Med 03/09/17 17:46 Discontinued 20 mg IV NOW ONE Labetalol Med 03/09/17 19:10 Discontinued 20 mg IV NOW ONE Nicardipine 20 mg/Ns [Cardene 20 mg/Ns] Med 03/09/17 21:00 Active 20 mg in 200 ml IV As Directed Nitroglycerin Med 03/09/17 19:10 Discontinued 0.5 inch TOP NOW ONE EKG [EKG] Stat Ther 03/09/17 13:09 Draft Orders Category Date Time Status Cardiac Monitoring DIRECTED Care 03/09/17 17:46 Active Saline Loc NOW Care 03/09/17 17:46 Active HEAD W/O CONTRAST [CT] Stat Exams 03/09/17 17:48 Ordered CBC WITH ELECTRONIC DIFF [HEME] Stat Lab 03/09/17 13:16 Completed CBC WITH ELECTRONIC DIFF [HEME] Stat Lab 03/09/17 17:46 Uncollected CK PROFILE [SP CHEM] Stat Lab 03/09/17 13:16 Completed CK PROFILE [SP CHEM] Stat Lab 03/09/17 17:46 Uncollected COMPREHENSIVE METABOLIC PANEL [CHEM] Stat Lab 03/09/17 13:16 Completed COMPREHENSIVE METABOLIC PANEL [CHEM] Stat Lab 03/09/17 17:46 Uncollected D-DIMER [CHEM] Stat Lab 03/09/17 13:16 Completed MAGNESIUM [CHEM] Stat Lab 03/09/17 13:16 Completed MAGNESIUM [CHEM] Stat Lab 03/09/17 17:46 Uncollected PRO B-NATRIURETIC PEPTIDE Stat Lab 03/09/17 13:16 Completed PRO B-NATRIURETIC PEPTIDE Stat Lab 03/09/17 17:46 Uncollected PROTIME WITH INR [COAG] Stat Lab 03/09/17 13:16 Completed PROTIME WITH INR [COAG] Stat Lab 03/09/17 17:46 Uncollected PTT [COAG] Stat Lab 03/09/17 13:16 Completed PTT [COAG] Stat Lab 03/09/17 17:46 Uncollected TROPONIN T Stat Lab 03/09/17 13:16 Completed TROPONIN T Stat Lab 03/09/17 17:46 Uncollected Labetalol Med 03/09/17 17:46 Discontinued 20 mg IV NOW ONE EKG [EKG] Stat Ther 03/09/17 13:09 Draft EKG [EKG] Stat Ther 03/09/17 17:46 Ordered Result Diagrams: 03/09/17 13:16 03/09/17 13:16 - CT/MRI 1 CT Study: Head Impression: See EMR Report (Negative exam, per Dr. Potter) 2 CT Study: Angiogram (pulmonary) Impression: See EMR Report (No acute disease, per Dr. Potter) - CONSULTS/PCP/HOSPITALIST Notification #1 *Consult/PCP/Hospitalist*: Dr. Burgess Time Discussed: 21:13 Reason/Comments: hypertension Consult Disposition: Will see in ED - CHANGE OF SHIFT REPORT (ED Provider) Report Given and Care Transferred to:: Time of Transfer: 18:00 Items Pending: Labs, CT/MRI Results Departure - Departure Date of Disposition Decision: 03/09/17 Time of Disposition Decision: 21:13 DIAGNOSIS: Hypertension Qualifiers: Hypertension type: essential hypertension Qualified Code(s): I10 - Essential ( primary) hypertension Disposition: ADMITTED INPATIENT 09 Certified Medical Emergency: Emergent Condition: Stable Referrals and Follow-Ups: None,PCP [Primary Care Provider] - - Critical Care Note This patient required my direct & personal management of CC.: No Attestation - Physician/ RAYRAY Attestation Patient care was provided by Advanced Practice Provider:: Yes Advanced Practice Provider:: Faye Bernardo Advanced Practice Provider documentation review:: The Mid-level provider documentation, treatment plan and medical decision making was reviewed by the physician who agrees with all treatment and medical decision making by the MLP. This chart was documented by the indicated scribe, (Lennox Azevedo, [place]) and accurately reflects the services I performed and decisions made by , Faye Bernardo PA, as attested by the provider's signature.
== END 2017-03-14 10:10 | disposition short-term general hospital (02) ==
LOC: ED 12:37 → SUATTDRO 22:18 → 3S 22:18
PROVIDERS: ATTEND Internal Medicine